=== PATIENT | male | born 1960 | race Caucasian/White ===

== ENCOUNTER 2018-02-01 06:41 | Emergency (ER) | payer BC ==
[2018-02-01] MEDS ORDERED: HYDROMORPHONE HCL INJ/PF 2 MG/ML AMPULE IV ONE ×2 (07:26→10:20)
[2018-02-01] MEDS ORDERED: ONDANSETRON 4 MG TAB.RAPDIS PO ONE (07:26)
[2018-02-01] MEDS ORDERED: NORMAL SALINE 1000 ML 1,000 ML IV ONE (07:26)
--- NOTE | 2018-02-01 07:29 | ER Document Report ---
ED General - General Chief Complaint: Possible Kidney Stone Stated Complaint: FLANK PAIN Time Seen by Provider: 02/01/18 07:17 Notes: 57-year-old male with history of kidney stones presents emergency department complaining of left flank pain and hematuria starting last night or early this morning. States it radiates into his left lower quadrant, causes nausea and diaphoresis but denies any vomiting, diarrhea or dysuria. Try to a half tablet of Percocet earlier this evening and it did not make any difference. - Related Data Allergies/Adverse Reactions: No Known Allergies Allergy (Unverified 02/01/18 06:47) Past Medical History - General Information source: Patient - Social History Smoking Status: Current Every Day Smoker Chew tobacco use (# tins/day): No Frequency of alcohol use: None Drug Abuse: None Family History: Reviewed & Not Pertinent Review of Systems - Review of Systems Constitutional: See HPI, Diaphoresis EENT: No symptoms reported Gastrointestinal: See HPI Genitourinary: See HPI -: Yes All other systems reviewed and negative Physical Exam - Vital signs Vitals: Temp Pulse Resp BP Pulse Ox 97.5 F 54 L 20 122/59 L 94 02/01/18 06:48 02/01/18 06:48 02/01/18 06:48 02/01/18 06:48 02/01/18 06:48 Interpretation: Normal - Notes Notes: GENERAL: Alert, appears uncomfortable, occasionally groaning. HEAD: Normocephalic, atraumatic EYES: Pupils equal, round and reactive to light, extraocular movements intact. ENT: Oral mucosa moist, tongue midline. NECK: Full range of motion, supple, trachea midline. LUNGS: Clear to auscultation bilaterally, no wheezes, rales or rhonchi, no respiratory distress. HEART: Regular rate and rhythm, no murmurs, gallops, rubs. ABDOMEN: Soft, left lower quadrant tenderness to palpation without guarding, rigidity or rebound, bowel sounds present in all 4 quadrants. EXTREMITIES: Moves all 4 extremities spontaneously, no edema, radial and dorsalis pedis pulses 2/4 bilaterally. No cyanosis. NEUROLOGICAL: Alert and oriented x3, normal speech. PSYCH: Normal mood, normal affect. SKIN: Warm, Dry, normal turgor, no rashes or lesions noted. Course - Re-evaluation Re-evalutation: 02/01/18 10:24 CBC shows leukocytosis of 13.9, likely stress demargination, BMP shows renal failure with a BUN of 23 and creatinine of 2.01, patient states he has known renal failure but is not following up with this. Does not know what his exact numbers are however he thinks his GFR may have been somewhere around 50. Patient does have a PA that he states he will see as an outpatient, doubt the renal failure is related to the 4 mm ureteral stone with mild hydronephrosis. Urinalysis shows large blood, 13 WBCs, greater than 182 RBCs, no evidence of infection at this time. CT scan shows mild dilation of the left ureter secondary to a 4 mm stone at the left UVJ, there is a 6 mm slightly exophytic hyperdense mass in the mid to lower pole of the left kidney lateral cortex that is incompletely evaluated on this exam. Patient was notified of this finding, encouraged to follow-up as an outpatient with a dedicated renal CT or MRI on a routine basis for further characterization. Patient and daughter are both aware that this needs to be followed up to rule out malignancy. Patient offered Percocet or Vicodin for pain control at home, patient declines at this time. Patient will be treated with acetaminophen, Flomax, Pyridium and asked to avoid aspirin and ibuprofen given the renal failure. Discharge to home. - Vital Signs Vital signs: Temp Pulse Resp BP Pulse Ox 97.5 F 54 L 20 122/59 L 94 02/01/18 06:48 02/01/18 06:48 02/01/18 06:48 02/01/18 06:48 02/01/18 06:48 - Laboratory Result Diagrams: 02/01/18 07:45 02/01/18 07:45 Laboratory results interpreted by me: 02/01/18 02/01/18 02/01/18 06:46 07:45 07:45 WBC 13.9 H RDW 15.9 H Seg Neutrophils % 86.1 H Lymphocytes % 9.5 L Absolute Neutrophils 12.0 H BUN 23 H Creatinine 2.01 H Est GFR ( Amer) 42 L Est GFR (Non-Af Amer) 34 L Glucose 160 H Urine Protein 100 H Urine Blood LARGE H Urine Urobilinogen 2.0 H Discharge - Discharge Clinical Impression: Calculus of distal left ureter, Hydronephrosis, left, Left renal mass Kidney failure Qualifiers: Renal failure chronicity: unspecified chronicity Qualified Code(s): N19 - Unspecified kidney failure Condition: Stable Disposition: HOME, SELF-CARE Additional Instructions: Today we found a 4 mm stone in your distal ureter, this means it is about to drop into the bladder so your pain should be improving soon. Please take the Flomax to help it pass more easily, Pyridium to decrease the pain and Zofran for nausea. Use acetaminophen as directed on the bottle for pain. Please avoid ibuprofen and aspirin as we found evidence of kidney damage today. You need to follow-up with your primary care physician regarding your kidney damage as you state you have had it before, it is important to know if this is changed. You also have a 6 mm exophytic mass on your left kidney in the lower pole. Our radiologist recommends that you have this followed up as an outpatient with a dedicated renal CT or MRI, this may need contrast. Please make sure you follow- up on this to be certain that it is not cancer. Prescriptions: Ondansetron [Zofran Odt 4 mg Tablet] 1 - 2 tab PO Q4HP PRN #10 tab.rapdis PRN Reason: Phenazopyridine HCl [Pyridium 200 mg Tablet] 200 mg PO TID #7 tablet Tamsulosin HCl [Flomax 0.4 mg Cap.sr] 0.4 mg PO DAILY #7 cap.sr.24h
[2018-02-01 07:42] LABS: APPEARANCE,URINE CLOUDY; BILIRUBIN,URINE NEGATIVE (NEGATIVE); COLOR,URINE YELLOW; GLUCOSE, URINE NEGATIVE (NEGATIVE); KETONES,URINE NEGATIVE (NEGATIVE); LEUKOCYTE ESTERASE,URINE NEGATIVE (NEGATIVE); NITRITE,URINE NEGATIVE (NEGATIVE); PROTEIN,URINE 100 mg/dL (NEGATIVE); URINE SPECIFIC GRAVITY 1.024
[2018-02-01 08:12] LABS: ABSOLUTE EOSINOPHILS # (AUTO) 0.1 10^3/uL (0.0-0.6); ABSOLUTE LYMPHOCYTES (AUTO) 1.3 10^3/uL (0.5-4.7); ABSOLUTE MONOCYTES (AUTO) 0.5 10^3/uL (0.1-1.4); BASOPHILS % (AUTO) 0.3 % (0-2); EOSINOPHILS % (AUTO) 0.4 % (0-6); HEMATOCRIT 41.6 % (37.9-51.0); HEMOGLOBIN 14.2 g/dL (13.5-17.0); LYMPHOCYTES % (AUTO) 9.5 % (13-45); MEAN CORPUSCULAR HEMOGLOBIN 31.4 pg (27.0-33.4); MEAN CORPUSCULAR HGB CONC 34.1 g/dL (32.0-36.0); MEAN CORPUSCULAR VOLUME 92 fl (80-97); MONOCYTES % (AUTO) 3.7 % (3-13); PLATELET COUNT 215 10^3/uL (150-450); RED BLOOD COUNT 4.52 10^6/uL (4.35-5.55); RED CELL DISTRIBUTION WIDTH 15.9 % (11.5-14.0); SEGMENTED NEUTROPHILS % (AUTO) 86.1 % (42-78); TOTAL CELLS COUNTED % (AUTO) 100 %; WHITE BLOOD COUNT 13.9 10^3/uL (4.0-10.5)
--- NOTE | 2018-02-01 08:15 | RADIOLOGY REPORT (SQ) ---
EXAM DESCRIPTION: CT LTD RENAL STONE PROTOCOL ON COMPLETED DATE/TIME: 02/01/2018 7:57 am REASON FOR STUDY: left flank pain, hematuria COMPARISON: None. TECHNIQUE: CT scan of the abdomen and pelvis performed without intravenous or oral contrast. Images reviewed with lung, soft tissue, and bone windows. Reconstructed coronal and sagittal MPR images revi ewed. All images stored on PACS. All CT scanners at this facility use dose modulation, iterative reconstruction, and/or weight based d osing when appropriate to reduce radiation dose to as low as reasonably achievable (ALARA). [facility]: Dose Right [facility]: CareDose [facility]: Dose Right [facility]: Teradose 4D [facility]: Smart [employer] Labs RADIATION DOSE: CT Rad equipment meets quality standard of care and radiation dose reduction techniq ues were employed. CTDIvol: 18.6 mGy. DLP: 1026 mGy-cm.mGy. LIMITATIONS: None. FINDINGS: LOWER CHEST: No significant findings. No nodules or infiltrates. NON-CONTRASTED LIVER, SPLEEN, ADRENALS: Evaluation limited by lack of IV contrast. No identified sign ificant masses. PANCREAS: No masses. No peripancreatic inflammatory changes. GALLBLADDER: No identified stones by CT criteria. No inflammatory changes to suggest cholecystitis. RIGHT KIDNEY AND URETER: No suspicious masses. Assessment limited by lack of IV contrast. There is a 6 mm nonobstructing stone in the inferior pole of the right kidney. No hydronephrosis or hydroure ter. LEFT KIDNEY AND URETER: There is a nonobstructing 5 mm stone in the mid left kidney. There is a nono bstructing 10 mm stone in the inferior left kidney. There is also a 6 mm slightly exophytic hyperden se mass in the mid to the lower pole of the left kidney lateral cortex that is completely evaluated o n this exam. There is mild dilatation of the left ureter secondary to a 4 mm stone at the left urete rovesicular junction. AORTA AND RETROPERITONEUM: No aneurysm. No retroperitoneal masses or adenopathy. Aortoiliac calcific ations are present. BOWEL AND PERITONEAL CAVITY: No obvious masses or inflammatory changes. No free fluid. APPENDIX: Normal. PELVIS, BLADDER, AND ABDOMINAL WALL:No abnormal masses. No free fluid. Bladder normal. BONES: No significant findings. OTHER: No other significant finding. IMPRESSION: 1. 4 mm at least mildly obstructing stone in the distal left ureter at the ureterovesic ular junction. 2. Bilateral nonobstructing nephrolithiasis 3. 6 mm exophytic hyperdense mass in the inferior aspect of the left kidney. This may represent a h yperdense cyst, however this mass is incompletely evaluated on this noncontrast evaluation. Recommen d dedicated renal CT or MRI on a routine basis for further characterization. COMMENT: Quality ID # [id number]: Final reports with documentation of one or more dose reduction techniques (e.g., Automated exposure control, adjustment of the mA and/or kV according to patient size, use of iterative reconstruction technique) TECHNICAL DOCUMENTATION: JOB ID: [id number] [employer]- All Rights Reserved Reading location - IP/workstation name: [email or web address]
[2018-02-01 08:28] LABS: ANION GAP 11 (5-19); BLOOD UREA NITROGEN 23 mg/dL (7-20); CALCIUM 9.8 mg/dL (8.4-10.2); CARBON DIOXIDE 27 mmol/L (22-30); CHLORIDE 105 mmol/L (98-107); GLUCOSE 160 mg/dL (75-110); POTASSIUM 4.3 mmol/L (3.6-5.0); SODIUM 142.6 mmol/L (137-145)
[2018-02-01 10:43] VITALS: BP 109/59
== END 2018-02-01 10:40 | disposition home or self-care (01) ==
LOC: ER 06:41
DX: N13.2 Hydronephrosis with renal and ureteral calculous obstruction (principal); N28.89 Other specified disorders of kidney and ureter; N19 Unspecified kidney failure; R10.9 Unspecified abdominal pain; R31.9 Hematuria, unspecified; F17.200 Nicotine dependence, unspecified, uncomplicated; Z87.442 Personal history of urinary calculi
CPT/HCPCS: 96376; 99284; 96361; 96374; 36415; 85025; 80048; 81001; 76380; S0119; J1170; J7030